=== PATIENT | female | born 1975 | race Caucasian/White ===

== ENCOUNTER 2016-08-28 06:22 | Emergency (ER) | payer OTHER ==
[~2016-08-28 06:22] MED LIST: CIPRO750 MG PO; DUL5 PO; MYLANTA II/MAAL30 M1 PO; NORCO1 TA2 PO; PANTOPRAZOLE SO40 M1 PO; PEPCID40 MG PO
[2016-08-28 08:40] VITALS: BP 111/78
== END 2016-08-28 08:46 | disposition home or self-care (01) ==
LOC: ED 06:22
DX: H81.10 Benign paroxysmal vertigo, unspecified ear (principal); R11.10 Vomiting, unspecified; E11.9 Type 2 diabetes mellitus without complications; Z79.84 Long term (current) use of oral hypoglycemic drugs
CPT/HCPCS: 82962; J2550; Q0162